=== PATIENT | male | born 1980 | race Caucasian/White ===

== ENCOUNTER → 2018-11-02 08:42 | Outpatient (CLI) | payer OTHER, SELFPAY ==
[2018-11-02 10:16] LABS: AST(SGOT) 21 U/L (15-37); Alanine Aminotransfer ALT/SGPT 34 U/L (16-61); Albumin, Serum 4.1 g/dL (3.2-5.0); Alkaline Phosphatase 59 U/L (45-117); Cholesterol 194 mg/dL (200); Globulin 3.2 g/dL (2.2-4.2); High Density Lipoprotein 50 mg/dL; Protein, Total 7.3 g/dL (6.4-8.2); Triglycerides 152 mg/dL; Very Low Density Lipoprotein 30 mg/dL (5-40)
== END ==
DX: E78.5 Hyperlipidemia, unspecified (principal)
CPT/HCPCS: 36415; 80061; 80076

== ENCOUNTER 2018-11-22 15:24 | Emergency (ER) | payer OTHER, SELFPAY ==
[2018-11-22 15:29] VITALS: BP 133/74; PULSE 74; RESP 18; TEMP 36.1; O2SAT 96; BMI 27.3
[2018-11-22 15:46] VITALS: BP 145/81; PULSE 72; RESP 18; O2SAT 96
--- NOTE | 2018-11-22 15:46 | ED.DCSUM_ITS ---
History of Present Illness Chief Complaint: Allergic Reaction Informant: Patient, Family Onset: Yesterday Context: Sudden Onset Timing: Continuous Quality: Generalized hives Location: Generalized Current Severity: Moderate Maximum Severity: Moderate Worsened by: Unknown Relieved by: Nothing Associated Symptoms: Nothing Narrative: Patient is a 37-year-old gentleman who has history of hypercholesterolemia presents with urticaria. Patient states he noted 1 erythematous lesion medial left arm yesterday. Upon awakening from nap this afternoon he noted rash on his neck, torso and extremities. He denies orthostatic symptoms. He denies visual, ocular auditory symptoms. He denies swelling of his lips, tongue or throat. Denies change in voice. Eyes difficult to breathing or swallowing. He denies wheezing. He denies palpitations. He does report vasovagal near syncopal episode Friday while urinating. He denies nausea, vomiting or diarrhea. He denies abdominal pain. Prior similar symptoms: No Recent Illness/Hospitalization: No - Past Medical History (1) History of hypercholesterolemia Status: Acute Past Medical History - Allergies and Home Meds Allergies/Adverse Reactions: Allergies [id number]-[id number]-Ujj Reductase Inhibitor Allergy (Verified 11/22/18 15:28) Other PT STATES HE GETS MUSCLE WEAKNESS. Primary Care Physician: Care Physician,No Primary [Primary Care Provider] - Doctors: Has not found a new doctor since moving from [place] with his and child Prior records reviewed: No Past Medical History: None Surgical History: no surgical history Lives: Spouse/ Significant Other, With Family Smoking Status: Never smoker Alcohol: Rare Drugs: None Review of Systems General: Denies: Chills, Fever, Sweats Eyes: Denies: Visual changes - bilaterally, Blurred Vision - bilaterally, Diplopia ENT: Denies: Bilateral ear pain, Rhinorrhea, Sore throat Cardiovascular: Denies: Chest pain, Palpitations Respiratory: Denies: Dyspnea, Cough, Dyspnea on exertion, Orthopnea, Paroxysmal nocturnal dyspnea Gastrointestinal: Denies: Abdominal pain, Nausea, Vomiting, Diarrhea, Melena, Hematochezia Genitourinary: Denies: Dysuria, Hematuria, Frequency Musculoskeletal: Denies: Back pain, Extremity Pain Skin: Denies: Rash, Wounds Neurological: Denies: Headache, Weakness, Parasthesia, Numbness Hematologic: Denies: Easy bruising, Easy bleeding Allergy: Reports: Uticaria Physical Exam Vital Signs/Narrative: Vital Signs Temp Pulse Resp BP Pulse Ox 11/22/18 15:29 96.9 F L 74 18 133/74 H 96 Inital Vital Signs reviewed: Yes General: Well nourished, Well developed, No Acute Distress Head: Normocephalic, Atraumatic Eyes: Perrl, EOMI, -. Negative for: Pale conjunctiva, Scleral icterus ENT: Moist mucous membranes, No rhinorrhea, TM's clear, - - Uvula is midline. There is no evidence of angioedema.. Negative for: Nasal congestion Neck: Supple, Nontender, No lymphadenopathy, No JVD, - - Trachea is midline. There is no stridor. Cardiovascular: Regular rate, Regular rhythm, No murmurs, Normal S1, Normal S2 Respiratory: No distress, CTA bilaterally, Chest nontender Abdomen: Soft, Nontender, Nondistended, Normal bowel sounds, No masses Back: Nontender, Normal Inspection. Negative for: CVA tenderness Extremities: Nontender, No edema Skin: Normal color, Rash - Urticaria. Negative for: Cyanosis, Jaundice Neurological: Alert, Oriented x3, Cranial nerves II-XII grossly intact, Normal Strength, Normal Sensation, Normal Gait Psychological: Normal affect, Normal Mood Diagnostic/Tx/Re-eval - Rhythm Strip Rhythm Strip: Sinus Rhythm Rate: 72 Ectopy: None - Medical Decision Making Patient has urticaria. There is no evidence of systemic findings. Since he took Benadryl at home he was treated with IV Pepcid and 60 mg of prednisone. Patient was asked specifically if he eaten any varies, shellfish or nuts in the past 1-2 hours or 24 hours. He replied no. Patient was informed he will need allergy testing. He will referred to a physician since she does not have a local physician since relocating from [facility] Patient was reassessed at 1700. His urticaria has resolved. He was referred to Dr. Flo Horn. states they are dentist referral recommended Dr. Flo Horn. Patient was informed he will need allergy testing. He was discharged with prescription for prednisone burst and Pepcid. ED Disposition - Plan for ED Patient: Disposition: Home or Assisted Living Diagnosis: Urticaria Prescriptions: Prednisone [Deltasone] 40 mg PO DAILY #10 tab Famotidine [Pepcid] 20 mg PO BID #10 tab Referrals: Care Physician,No Primary [Primary Care Provider] - Flo Horn MD [STAFF PHYSICIAN] - 3-5 Days
[2018-11-22] MEDS: predniSONE 20 MG Tablet 60 MG PO (15:51)
[2018-11-22 17:37] VITALS: BP 134/83; PULSE 55; RESP 20; O2SAT 96
== END 2018-11-22 17:38 | disposition home or self-care (01) ==
PROVIDERS: Emergency Provider Emergency Medicine
DX: L50.0 Allergic urticaria (principal); E78.00 Pure hypercholesterolemia, unspecified; Z79.899 Other long term (current) drug therapy
CPT/HCPCS: 96374; 99285; A4216; J3490

== ENCOUNTER → 2018-12-23 | Outpatient (CLI) | payer OTHER, SELFPAY ==
[2018-12-23 14:55] VITALS: BMI 27.3
--- NOTE | 2018-12-23 15:00 | MASS_PTH ---
PATIENT: TOD SERRATO LOC: [facility] U#:[id number] AGE/SX: 38/M ROOM: RE12/23/[address]: Dr. Wagner Srinivasan MD : [id number] BED: DIS: 12/23/2018 SPEC #: [id number] RECD: 12/24/18 07:13 STATUS: COLBY ABBY #: [id number] SACHIN: 12/23/18 15:[address]: Wagner Srinivasan DEPT: SURGICAL PATHOLOGY RECD BY: Jakob Cardozo ENTERED: 12/24/18 12:26 SP TYPE: Mass OTHR DR: Dr. Flo Horn MD Tissues: Left arm Procedures: Surgery Specimen Level IV HEADER OPERATION: Excision left arm mass PRE-OP DIAGNOSIS: Left arm mass TISSUE SUBMITTED: Left arm tissue MICROSCOPIC DIAGNOSIS Left arm mass, excision: Benign vascular proliferation, most consistent with arteriovenous malformation, with organizing thrombus formation. SJ:willow 12/25/18 COMMENT Case has been reviewed in consultation with Dr. Carrion who concurs with the above diagnosis. IDC:AM MICROSCOPIC DESCRIPTION Slides are reviewed. GROSS DESCRIPTION Received in fixative is one container labeled with the patient's name and designated left arm. The specimen consists of round piece of hemorrhagic nodule measuring 1.5 x 1.3 x 0.6 cm. The specimen is inked, serially sectioned and submitted entirely in one cassette. / SJ:rg 12/24/18 TC:5 CPT: 36776
== END | disposition home or self-care (01) ==
LOC: LABSPEC 12-24 08:15
PROVIDERS: Family Provider Family Medicine; PCP Family Medicine; Referring Provider Surgery; Visit Provider Surgery
DX: R22.32 Localized swelling, mass and lump, left upper limb (principal)
CPT/HCPCS: 88305

== ENCOUNTER → 2019-09-13 09:46 | Outpatient (CLI) | payer OTHER, SELFPAY ==
[2018-12-23 14:55] VITALS: BMI 27.3
[2019-09-13 12:32] LABS: Thyroid Stim Hormone (TSH) 1.91 uIU/mL (0.358-3.74)
== END ==
PROVIDERS: PCP Family Medicine; Visit Provider Nurse Practitioner Family
DX: R22.0 Localized swelling, mass and lump, head (principal)
CPT/HCPCS: 36415; 84443

== ENCOUNTER → 2019-11-01 09:17 | Outpatient (CLI) | payer OTHER, SELFPAY ==
[2018-12-23 14:55] VITALS: BMI 27.3
[2019-11-01 10:51] LABS: ALB/GLOB Ratio 1.2 RATIO (0.9-2.4); AST(SGOT) 18 U/L (15-37); Alanine Aminotransfer ALT/SGPT 30 U/L (16-61); Albumin, Serum 4.3 g/dL (3.2-5.0); Alkaline Phosphatase 62 U/L (45-117); Anion Gap 6 (5-15); BUN 14 mg/dL (7-18); BUN/Creat Ratio 12.8 RATIO (10-20); Calcium,Total 9.3 mg/dL (8.5-10.1); Chloride 106 mmol/L (98-107); Cholesterol 127 mg/dL (200); Creatinine, Serum 1.09 mg/dL (0.70-1.30); EST Glomerular Filtration Rate 80 mL/min (>60); Est Glom Filt Rate - Afr Amer 97 mL/min (>60); Globulin 3.6 g/dL (2.2-4.2); Glucose 96 mg/dL (74-106); High Density Lipoprotein 60 mg/dL; Potassium 3.8 mmol/L (3.5-5.1); Protein, Total 7.9 g/dL (6.4-8.2); Sodium Level 139 mmol/L (136-145); Triglycerides 161 mg/dL; Very Low Density Lipoprotein 32 mg/dL (5-40)
== END ==
PROVIDERS: PCP Family Medicine
DX: E78.49 Other hyperlipidemia (principal)
CPT/HCPCS: 36415; 80053; 80061

== ENCOUNTER → 2020-01-19 12:31 | Outpatient (CLI) | payer OTHER, SELFPAY ==
[2019-12-01 15:50] VITALS: BMI 26.5
--- NOTE | 2020-01-19 12:33 | ECHOD_ITS ---
Reason For Study: MURMUR Procedure This was a 2D Doppler, Color Flow transthoracic echocardiogram. Exam performed in department. Left Ventricle Normal LV size. Left ventricular systolic function is normal. The estimated ejection fraction is 55 %. No regional wall motion abnormalities noted. Right Ventricle Normal RV size. Normal systolic function. Atria Normal left atrium. Normal right atrium. Mitral Valve Normal mitral valve. Tricuspid Valve Normal tricuspid valve. Aortic Valve Bicuspid aortic valve. Peak aortic valve gradient 9 mmHg. Mean aortic valve gradient 5 mmHg. Mild aortic stenosis. Pulmonic Valve Normal pulmonic valve. Great Vessels Normal aortic root. The pulmonary artery is normal size. Normal inferior vena cava. Pericardium/Pleural No pericardial effusion. MMode/2D Measurements & Calculations LVIDd: 5.1 cm IVSd: 0.91 cm LVOT diam: 2.4 cm LVIDs: 3.7 cm LVPWd: 0.97 cm LVOT area: 4.5 cm2 RVDd: 3.3 cm FS: 26.6 % Ao root diam: 3.3 cm LAV(MOD-bp): 31.6 ml LA A4 area: 12.7 cm2 LAV(MOD-bp) Indexed: 14.7 ml/m2 LAV(MOD-sp2): 30.1 ml LAV(MOD-sp4): 29.6 ml LA dimension(2D): 2.8 cm RA A4 area: 10.9 cm2 Time Measurements MV dec time: 0.12 sec Doppler Measurements & Calculations MV E max napoleon: 67.7 cm/sec Lat Peak E' Napoleon: 11.8 cm/sec Med Peak E' Napoleon: 10.2 cm/sec MV A max napoleon: 47.5 cm/sec E/E' lat: 5.7 E/E' med: 6.6 MV E/A: 1.4 Ao V2 max: 151.3 cm/sec LV V1 max: 60.1 cm/sec SV(LVOT): 46.1 ml Ao max P.3 mmHg LV V1 max P.4 mmHg Ao V2 mean: 99.2 cm/sec LV V1 mean P.74 mmHg Ao mean P.6 mmHg LV V1 mean: 41.4 cm/sec Ao V2 VTI: 25.8 cm LV V1 VTI: 10.3 cm LIYAH(I,D): 1.8 cm2 LIYAH(V,D): 1.8 cm2 PA V2 max: 93.2 cm/sec TR max napoleon: 199.3 cm/sec TR max P.9 mmHg Interpretation Summary Normal LV size. Left ventricular systolic function is normal. The estimated ejection fraction is 55 %. Mild aortic stenosis. Mean aortic valve gradient 5 mmHg. Bicuspid aortic valve. Ordering Physician: Rory Harvey Referring Physician: Flo Horn Performed By: Ida Ulrich RDCS, RVT
--- NOTE | 2020-01-19 12:38 | CT_ITS ---
STUDY: CT CHEST WITHOUT CONTRAST REASON FOR EXAM: Male, 39 years old. CAD, aortic insufficiency, hyperlipidemia. Limited CT Chest over-read only. RADIATION DOSAGE (If Supplied By Facility): CTDIvol = ( 12.19 ) mGy, DLP = ( 243.79 ) mGycm TECHNIQUE: Transaxial imaging was performed without the administration of intravenous contrast material. Cardiac over read examination. Individualized dose optimization techniques were used for this CT. COMPARISON: None. FINDINGS: The lungs are normal. There is no demonstrated pleural abnormality. There are minimal calcifications of the coronary arteries. There are multiple small lymph nodes within the mediastinum, which are normal in size and morphology most compatible with reactive lymph hyperplasia. Normal hilar regions. Normal unenhanced pulmonary arteries. Normal aorta arch and descending thoracic aorta. Normal osseous structures. Small hiatal hernia. CT/Limited Chest CT w/CCTA IMPRESSION: Minimal coronary artery calcifications. Electronically Signed: Jeb Posey, at 15:03 EDT , Service support ,
[2020-01-19 13:40] VITALS: BP 129/84; PULSE 69; RESP 16; O2SAT 99; BMI 26.4
--- NOTE | 2020-01-19 18:05 | CA.SCORE ---
Calcium Scoring Date of Study:: 01/19/20 Coronary Calcium Scoring: High-resolution Computed Tomographic imaging of the chest was performed on [01/19/2020], with particular attention paid to the coronary arteries. Images from the examination were analyzed for the presence and extent of coronary artery calcification , using coronary calcium quantification software. The patient tolerated the procedure well and there were no complications. The results of the coronary calcification analysis are provided below. - Findings Left Main (LM): 0 Left Anterior Descending (LAD): 0 Left Circumflex (LCX): 0 Right Coronary Artery (RCA): 0 Total Agatston Score: 0 Percentile Rankinth percentile Calcium Scoring Interpretation: 0 No identifiable atherosclerotic plaque. Very low cardiovascular disease risk. <5% chance of presence coronary artery disease A Negative Examination 1-10 Minimal Plaque burden. Significant coronary artery disease very unlikely. 11-100 Mild plaque burden. Likely mild or minimal coronary atherosclerosis. 101-400 Moderate plaque burden Moderate non-obstructive coronary artery disease highly likely. Over 400 Extensive plaque burden. High likelihood of at least one significant coronary stenosis (>50% diameter) Calcium Score: 0 Negative Examination - Determination of cardiac risk should include an assessment of all conventional risk factors and the scores and percentile rankings reported herein should be evaluated in this context.
== END ==
PROVIDERS: PCP Family Medicine; Referring Provider Internal Medicine Cardiovascular Disease; Visit Provider Internal Medicine Cardiovascular Disease
DX: R01.1 Cardiac murmur, unspecified (principal); I25.10 Atherosclerotic heart disease of native coronary artery without angina pectoris; Q23.1 Congenital insufficiency of aortic valve; E78.5 Hyperlipidemia, unspecified
CPT/HCPCS: 75571; 76380; 93306

== ENCOUNTER → 2020-12-05 10:41 | Outpatient (CLI) | payer OTHER, SELFPAY ==
[2020-12-05 08:01] VITALS: BMI 27.1
[2020-12-05 12:15] LABS: AST(SGOT) 27 U/L (15-37); Alanine Aminotransfer ALT/SGPT 45 U/L (16-61); Albumin, Serum 4.5 g/dL (3.2-5.0); Alkaline Phosphatase 64 U/L (45-117); Bilirubin, Direct 0.21 mg/dL (0.00-0.30); Cholesterol 154 mg/dL (200); Globulin 3.9 g/dL (2.2-4.2); High Density Lipoprotein 69 mg/dL; Protein, Total 8.4 g/dL (6.4-8.2); Triglycerides 74 mg/dL; Very Low Density Lipoprotein 15 mg/dL (5-40)
== END ==
PROVIDERS: PCP Family Medicine; Referring Provider Internal Medicine Cardiovascular Disease; Visit Provider Internal Medicine Cardiovascular Disease
DX: E78.00 Pure hypercholesterolemia, unspecified (principal)
CPT/HCPCS: 36415; 80061; 80076

== ENCOUNTER → 2021-05-08 | Outpatient (CLI) | payer OTHER, SELFPAY | END | disposition home or self-care (01) | LOC: LAB 18:21 → LABSPEC 20:17 | PROVIDERS: PCP Family Medicine; Referring Provider Family Medicine; Visit Provider Family Medicine | DX: U07.1 COVID-19 (principal) | CPT/HCPCS: 87635; U0005; U0003 ==

== ENCOUNTER 2021-11-30 07:15 | Outpatient (CLI) | payer OTHER, SELFPAY ==
[2021-11-30 07:50] LABS: Absolute Lymphocyte Count 1.61 X10^3/uL (0.83-4.51); Absolute Neutrophil Count 2.6 X10^3/uL (2.0-7.7); Basophil# 0.02 X10^3/uL; Basophil% 0.4 % (0-1); Eosinophil# 0.08 X10^3/uL; Eosinophils% 1.6 % (0-5); Hematocrit 49.1 % (40-54); Hemoglobin 16.8 g/dL (13.0-16.5); Lymphocyte # 1.61 X10^3/ul (0.83-4.51); Lymphocyte % 33.2 % (19-41); Mean Corp Hgb Conc 34.2 g/dL (32-36); Mean Corpuscular Hgb 31.4 pg (27.0-32.0); Mean Corpuscular Volume 91.8 fL (80-94); Mean Platelet Vol. 10.4 fl (6.2-12.0); Monocyte# 0.55 X10^3/uL; Monocyte% 11.3 % (0-10); NRBC Flagged by Analyzer 0 % (0-5); Neutrophil # 2.58 X10^3/uL (2.7-7.7); Neutrophil % 53.3 % (47-70); Platelet Count 211 K/mm3 (150-450); RBC Distribution Width CV 12.3 % (11.6-14.6); RBC Distribution Width SD 41.5 fl (35.1-43.9); Red Blood Count 5.35 M/mm3 (4.6-6.2); White Blood Count 4.9 K/mm3 (4.4-11.0)
[2021-11-30 08:16] LABS: ALB/GLOB Ratio 1.2 RATIO (0.9-2.4); AST(SGOT) 19 U/L (15-37); Alanine Aminotransfer ALT/SGPT 38 U/L (16-61); Albumin, Serum 4.2 g/dL (3.2-5.0); Alkaline Phosphatase 55 U/L (45-117); Anion Gap 3 (5-15); BUN 18 mg/dL (7-18); BUN/Creat Ratio 16.8 RATIO (10-20); Bilirubin, Direct 0.15 mg/dL (0.00-0.30); Calcium,Total 8.8 mg/dL (8.5-10.1); Chloride 106 mmol/L (98-107); Cholesterol 145 mg/dL (200); Creatinine, Serum 1.07 mg/dL (0.70-1.30); EST Glomerular Filtration Rate 81 mL/min (>60); Est Glom Filt Rate - Afr Amer 98 mL/min (>60); Globulin 3.6 g/dL (2.2-4.2); Glucose 104 mg/dL (74-106); High Density Lipoprotein 70 mg/dL; Protein, Total 7.8 g/dL (6.4-8.2); Sodium Level 140 mmol/L (136-145); Triglycerides 74 mg/dL; Very Low Density Lipoprotein 15 mg/dL (5-40)
== END 2021-11-30 23:59 | disposition home or self-care (01) ==
LOC: LAB 07:17
PROVIDERS: PCP Family Medicine; Visit Provider Family Medicine
DX: Z00.00 Encounter for general adult medical examination without abnormal findings (principal); F33.8 Other recurrent depressive disorders; I70.0 Atherosclerosis of aorta
CPT/HCPCS: 36415; 80053; 80061; 82248; 85025

== ENCOUNTER 2021-12-27 12:52 | Outpatient (CLI) | payer OTHER, SELFPAY ==
--- NOTE | 2021-12-27 13:05 | ECHOD_ITS ---
Reason For Study: bicuspid aortic valve Procedure This was a 2D Doppler, Color Flow transthoracic echocardiogram. Exam performed in department. Left Ventricle Normal LV size. Left ventricular systolic function is normal. The estimated ejection fraction is 55 %. No regional wall motion abnormalities noted. Right Ventricle Normal right ventricle. Normal systolic function. Atria Normal left atrium. Normal right atrium. Mitral Valve Normal mitral valve. Tricuspid Valve Normal tricuspid valve. Mild tricuspid valve insufficiency. Aortic Valve Bicuspid aortic valve. Peak aortic valve gradient 17 mmHg. Mean aortic valve gradient 10 mmHg. Pulmonic Valve Normal pulmonic valve. Great Vessels Normal aortic root. The pulmonary artery is normal size. Normal inferior vena cava. Pericardium/Pleural No pericardial effusion. MMode/2D Measurements & Calculations LVIDd: 4.8 cm IVSd: 0.96 cm LVOT diam: 2.4 cm LVIDs: 3.1 cm LVPWd: 0.97 cm LVOT area: 4.5 cm2 RVDd: 3.1 cm FS: 35.3 % Ao root diam: 3.7 cm LAV(MOD-bp): 42.4 ml LA A4 area: 15.2 cm2 LAV(MOD-bp) Indexed: 19.7 ml/m2 LAV(MOD-sp2): 40.1 ml LAV(MOD-sp4): 41.7 ml LA dimension(2D): 3.4 cm RA A4 area: 14.4 cm2 Doppler Measurements & Calculations MV E max napoleon: 61.1 cm/sec Lat Peak E' Napoleon: 14.6 cm/sec Med Peak E' Napoleon: 10.4 cm/sec MV A max napoleon: 42.6 cm/sec E/E' lat: 4.2 E/E' med: 5.9 MV E/A: 1.4 Ao V2 max: 210.2 cm/sec LV V1 max: 91.4 cm/sec SV(LVOT): 79.7 ml Ao max P.7 mmHg LV V1 max P.3 mmHg Ao V2 mean: 155.3 cm/sec LV V1 mean P.9 mmHg Ao mean P.4 mmHg LV V1 mean: 66.1 cm/sec Ao V2 VTI: 36.1 cm LV V1 VTI: 17.7 cm LIYAH(I,D): 2.2 cm2 LIYAH(V,D): 2.0 cm2 PA V2 max: 112.9 cm/sec TR max napoleon: 222.2 cm/sec TR max P.7 mmHg ECHO/Echo Complete Interpretation Summary Normal LV size. Left ventricular systolic function is normal. The estimated ejection fraction is 55 %. Bicuspid aortic valve. Mild tricuspid valve insufficiency. Mean aortic valve gradient 10 mmHg. Ordering Physician: Rory Harvey Referring Physician: Flo Horn Performed By: Ida Ulrich, SCOOTER, RVT
== END 2021-12-27 23:59 | disposition home or self-care (01) ==
PROVIDERS: PCP Family Medicine; Referring Provider Internal Medicine Cardiovascular Disease; Visit Provider Internal Medicine Cardiovascular Disease
DX: Q23.0 Congenital stenosis of aortic valve (principal); Q23.1 Congenital insufficiency of aortic valve
CPT/HCPCS: 93306

== ENCOUNTER → 2022-06-17 | Outpatient (CLI) | payer OTHER, SELFPAY ==
--- NOTE | 2022-06-17 07:48 | CDU_ITS ---
Reason For Study: DIZZINESS Rt. Velocities/BP Lt. Velocities/BP Prox CCA 114.9/9.3 cm/sec. Prox CCA 114.3/19.4 cm/sec. Mid CCA 112.5/21.6 cm/sec. Mid CCA 116.2/28.5 cm/sec. Dist CCA 101.4/17.9 cm/sec. Dist CCA 114.3/26.7 cm/sec. Prox ICA 107.0/13.9 cm/sec. Prox ICA 114.3/19.4 cm/sec. Mid ICA 58.5/19.7 cm/sec. Mid ICA 61.1/21.5 cm/sec. Dist ICA 66.0/28.2 cm/sec. Dist ICA 68.8/21.5 cm/sec. Rt. ICA/CCA = 107.0/112.5=0.95. Lt. ICA/CCA = 114.3/116.2=0.98. Prox ECA 81.8/13.0 cm/sec. Prox ECA 123.5/17.5 cm/sec. Rt. Vert. 50.9/11.2 cm/sec. Lt. Vert. 47.6/8.4 cm/sec. Right Extracranial There is intimal thickening but no significant atherosclerotic plaque noted in the right common carotid artery. There is no significant atherosclerotic plaque noted in the right internal carotid artery. There is no significant atherosclerotic plaque noted in the right external carotid artery. Antegrade flow is noted in the right vertebral artery. Left Extracranial There is intimal thickening but no significant atherosclerotic plaque noted in the left common carotid artery. There is intimal thickening but no significant atherosclerotic plaque noted in the left internal carotid artery. There is no significant atherosclerotic plaque noted in the left external carotid artery. Antegrade flow is noted in the left vertebral artery. Procedure Carotid Duplex 18510. This is a Carotid Duplex examination using B-mode, color flow and specral Doppler. Exam performed in department. VL/Carotid Duplex Ultrasound Interpretation Summary Normal right extracranial internal carotid. Normal left extracranial internal carotid. Patent and antegrade vertebrals bilaterally. Ordering Physician: Roger Lowe Referring Physician: Flo Horn Performed By: Ida Ulrich RDCS, RVT
== END | disposition home or self-care (01) ==
LOC: CVS 07:44
PROVIDERS: PCP Family Medicine; Referring Provider Nurse Practitioner Family; Visit Provider Nurse Practitioner Family
DX: I65.22 Occlusion and stenosis of left carotid artery (principal); R42 Dizziness and giddiness
CPT/HCPCS: 93880

== ENCOUNTER → 2023-01-23 | Outpatient (CLI) | payer OTHER, SELFPAY ==
[2023-01-23 10:39] LABS: AST(SGOT) 21 U/L (15-37); Alanine Aminotransfer ALT/SGPT 42 U/L (16-61); Albumin, Serum 4.3 g/dL (3.2-5.0); Alkaline Phosphatase 48 U/L (45-117); Bilirubin, Direct 0.19 mg/dL (0.00-0.30); Cholesterol 153 mg/dL (200); Globulin 3.6 g/dL (2.2-4.2); High Density Lipoprotein 66 mg/dL; Protein, Total 7.9 g/dL (6.4-8.2); Triglycerides 73 mg/dL; Very Low Density Lipoprotein 15 mg/dL (5-40)
== END | disposition home or self-care (01) ==
LOC: LAB 09:04
PROVIDERS: PCP Family Medicine; Visit Provider Nurse Practitioner Gerontology
DX: E78.5 Hyperlipidemia, unspecified (principal)
CPT/HCPCS: 36415; 80061; 80076

== ENCOUNTER 2023-06-19 08:00 | Outpatient (RCR) | payer OTHER, SELFPAY ==
--- NOTE | 2023-05-15 10:40 | HP.PTEVAL_ITS ---
Patient's Visit Information Visit Information Visit Information: TOD SERRATO is a 42 year old M referred to Physical Therapy by BABITA Garvey with a diagnosis of CERVICAL DDD, RADICULITIS, STENOSIS, SPONDYLOSIS, AND FACET ARTHROPATHY. Date of Evaluation: 05/15/23 Physical Therapist: Joanna Sweet PT, Cert MDT Visit Plan Frequency: 2-3x /Week Duration: 4-6 Weeks Plan: FOCUS ON CERVICAL AND REGINA SHLD STRENGTH AND STABILIZATION TO TRY TO DECREASE PAIN. AVOID PERIPHERALIZATION OF SX'S. START WITH CERVICAL ISOMETRICS AND SCAPULAR STRENGTHENING. POSTURE CORRECTION/STRENGTHENING, INSTRUCTION IN APPROPRIATE BODY MECHANICS AND ACTIVITY MODIFICATIONS. REGINA UE ROM, STRETCHING AND STRENGTHENING. HEP INSTRUCTION. 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 SOME PHYSICAL WORK. Disability: NO Present symptoms: R NECK PAIN. NUMBNESS AND TINGLING R DIGITS 4 AND 5. INTERMITTENT HEADACHES - APPROX 4 DAYS A WK. DIZZINESS (FOR AT LEAST A YEAR). R SHLD AND ARMPIT AREA PAIN. R FOREARM PAIN. Present since: A YEAR OR TWO AGO Pain Scale: Worst - 6/10 Least - 2/10 Currently: 3/10 Commenced as a result of: FELL DOWN STEPS Symptoms at onset: NECK PAIN Worse: (>25LBS) - PUSHING, PULLING, LIFTING, HAVING INTERCOURSE Better: ICE, ALEVE, PREDNISONE (JUST STARTED THIS MORNING). Disturbed sleep: NO Previous history/Previous treatment: NO KNOWN PRIOR HISTORY This episode: 2 ROUNDS OF INJECTIONS, A NERVE BLOCK AND AN ABLASION. OCCASSIONAL ROUNDS OF STEROIDS. THEY HAVE ALL GIVEN TEMPORARY RELIEF. CONSULT WITH NECK SURGEON - PATIENT REPORTS HE SAID FUSION WOULD BE NEEDED AT SOME POINT BUT RECOMMENDED INJECTIONS FIRST AND REFERRED HIM TO PAIN MGMT FIRST. Dizziness: YES Tinnitis: OCCASSIONALLY Nausea: NO Shortness of Breath: NO Difficulty Swollowing: NO Gait: NO Accidents: NO Unexplained weight loss: NO Imaging: HAS HAD NECK X-RAYS AND MRI. PATIENT REPORTS HE HAS 3 BULGING DISCS BETWEEN C3 AND C7. PMH/Recent major surgery: Objective Objective: Sitting Posture/Standing Posture: PATIENT SITS AND STANDS WITH RIGID ERECT POSTURE AND WHEN ASKED TO SLOUCHED REPORTS IT IS VERY UNCOMFORTABLE AND QUICKLY BECOMES PAINFUL IN UPPER BACK. Active Correction of posture: BETTER. Other Observations: INDEP GAIT AND TRANSFERS Sensory deficit: DECREASED LIGHT TOUCH SENSATION R ULNAR BORDER OF FORARM, AND DIGITS 1 (THUMB), 4 AND 5. ROM deficit: REGINA UE ROM WFL BUT PATIENT C/O R SHLD, UPPER BACK AND NECK PAIN WITH REGINA SHLD ROM TESTING ALL PLANES ESPECIALLY OVER HEAD. Motor deficit: R HAND DOMINANT WITH A R BILINGUAL HR GENERALIST STRENGTH OF 110 LBS AND LEFT 98 LBS. REGINA SCAPULAR WEAKNESS AND WINGING. R SHLD 4-/5, ELBOW 5/5. L SHLD 4/5, ELBOW 5/5. Reflexes: RIGHT BICEP 1/2, FOREARM ABSENT. L BICEP AND FOREARM 2/3. Dural Signs: POSITIVE R UE. Cervical Mvmt Loss: Flex: NIL Pro: NIL Ext: MIN Ret: MIN TO MOD - PERIPHERIZES SX'S. RSB: MIN LSB: MIN R Rot: NIL L Rot: NIL PATIENT C/O NECK DISCOMFORT WITH CERVICAL ROM TESTING ALL PLANES. Postural strength: FAIR Palpation: PATIENT REPORTS DISCOMFORT WITH PALPATION THROUGHOUT THE THORACIC SPINE ESPECIALLY THE UPPER THORACIC SPINE. HE IS ALSO TENDER WITH LIGHT PALPATION IN THE CERVICAL SPINE AND OCCIPUT REGION. HE IS UNSURE IF HE HAS HAD THORACIC IMAGING AND IS GOING TO CHECK WITH HIS DOCTOR. WITH LIGHT PALPATION OF UPPER CERVICAL SPINE PATIENT REPORTS HE CAN FEEL IT IN HIS FEET. Balance/Special Test Scores Oswestry Neck Score: 17 Goals Goal 1:: DECREASE C/O RIGHT NECK, UPPER BACK AND R UE SX'S. Goal Time Frame: 4-6 Weeks Goal 2:: IMPROVE PERSONAL CARE, LIFTING, READING, SLEEP, WORK, DRIVING AND RECREATIONAL FUNCTION. Goal Time Frame: 4-6 Weeks Goal 3:: INSTRUCT IN PROPHYLAXIS Goal Time Frame: 4-6 Weeks Anticipated Interventions Patient/Client Instruction: Educate patient on: Condition, Plan of Care and Risk Factors For the Purpose of:: To improve self management Therapeutic Exercise to Include: Strength training, Body mechanics, Postural training, Flexibilty training, Neuromotor development and Scapular Strength/Stabilization For the Purpose of:: To decrease pain, To increase ROM, To improve muscle performance and motor function, To increase tolerance to activity/condition/position and To improve ability of physical actions for home/community/work/leisure Cryotherapy (ice pack, ice massage): Yes Thermo therapy (hot pack): Yes For the Purpose of:: To decrease pain and To decrease swelling/inflammation Text: Thank you for the opportunity to evaluate your patient. For Medicare and Medicare HMO plans, please review the plan of care and approve it. It will need to be FAXED BACK to us at [phone] for Medicare purposes. For Medicare only, by signing this I certify the plan of care. Please let me know if there are questions or concerns regarding this plan of care. Physician Signature: Date:
--- NOTE | 2023-06-19 08:38 | HP.PTDCSUM ---
Discharge Summary D/C summary: It has been my pleasure to treat TOD SERRATO referred by Liz Padron NP-C, with the diagnosis of CERVICAL DDD, RADICULITIS, STENOSIS, SPONDYLOSIS, AND FACET ARTHROPATHY for a total of 10 visit(s). Discharge Date: 06/19/23 Please see the following information for a summary of their discharge status. Subjective Subjective: I'M MUCH BETTER THAN I THOUGH I WOULD FEEL. PATIENT REPORTS HE CAN RELAX HIS NECK NOW. HE STATES THE MUSCLES THAT GO DOWN THE THORACIC REGION FEEL STABLE AND HIS NECK FEELS STABLE. I DON'T GET NEAR THE AMOUNT OF CRACKING AND POPPING IN MY NECK. OVER ALL THE PAIN IS A LOT MORE TOLERABLE AND MY SHLD'S ARE MORE STABLE. I DON'T HAVE THE GOMES'S OFTEN OR INTENSE. PATIENT REPORTS COMPLIANCE WITH HEP AND FEELS HE CAN CONTINUE ON HIS OWN NOW. PATIENT REPORTS HIS NECK PAIN IS INTERMITTENT NOW RANGING 0-3/10. Pain R UT: Pain Intensity (Out of 10): 1 Overall Improvement % Improvement: 100 Objective Objective/Function: PATIENT WAS SEEN TODAY FOR RE-ASSESSMENT OF PROGRESS TOWARD THE SET PT GOALS AND THE NEED FOR FURTHER PHYSICAL THERAPY VS READINESS FOR DISCHARGE. ALL GOALS HAVE BEEN MET AND PATIENT IS APPROPRIATE FOR AND AGREEABLE TO DISCHARGE. UPON EXAM TODAY: Cervical Mvmt Loss: Flex: NIL Pro: NIL Ext: MIN Ret: MIN RSB: MIN LSB: MIN R Rot: NIL L Rot: NIL PATIENT C/O NECK DISCOMFORT WITH CERVICAL ROM INTO RETRACTION, EXTENSION AND L ROTATION BUT DOES NOT REMAIN WORSE A RESULT. PATIENT IS INDEP WITH HEP. Goals Goal 1:: DECREASE C/O RIGHT NECK, UPPER BACK AND R UE SX'S. Goal Progress: Goal Met Goal 2:: IMPROVE PERSONAL CARE, LIFTING, READING, SLEEP, WORK, DRIVING AND RECREATIONAL FUNCTION. Goal Progress: Goal Met Goal 3:: INSTRUCT IN PROPHYLAXIS Goal Progress: Goal Met Plan Plan: FOCUS ON CERVICAL AND REGINA SHLD STRENGTH AND STABILIZATION TO TRY TO DECREASE PAIN. AVOID PERIPHERALIZATION OF SX'S. START WITH CERVICAL ISOMETRICS AND SCAPULAR STRENGTHENING. POSTURE CORRECTION/STRENGTHENING, INSTRUCTION IN APPROPRIATE BODY MECHANICS AND ACTIVITY MODIFICATIONS. REGINA UE ROM, STRETCHING AND STRENGTHENING. HEP INSTRUCTION. D/C Information d/c sentence: If there are questions or concerns regarding this patient's physical therapy, please feel free to call me at [phone]. Thank you for the referral of this patient. Sincerely, Joanna Sweet, PT, Cert MDT Balance/Gait/Functional tests Balance/Special Test Scores Oswestry Neck Score: 10 Improvement % Improvement: 100
== END 2023-06-19 12:24 | disposition home or self-care (01) ==
LOC: PT 08:00
PROVIDERS: PCP Family Medicine; Referring Provider Nurse Practitioner Acute Care; Visit Provider Nurse Practitioner Acute Care
DX: M50.30 Other cervical disc degeneration, unspecified cervical region (principal); M54.12 Radiculopathy, cervical region; M50.20 Other cervical disc displacement, unspecified cervical region; M48.02 Spinal stenosis, cervical region; M47.812 Spondylosis without myelopathy or radiculopathy, cervical region; M48.9 Spondylopathy, unspecified
CPT/HCPCS: 97110; 97162; 97164

== ENCOUNTER → 2023-09-29 | Outpatient (CLI) | payer OTHER, SELFPAY ==
--- OUTSIDE RECORDS SUMMARY | 2023-09-29 15:01 | XMS RPT_ITS | CCD ---
Author Name Unknown Address [address] [place] [address] Organization [facility] Care Team Providers Care Account Director Name Role Phone Panchito Moses Unavailable Unavailable Jose G Velasquez Unavailable Unavailable Jose G Velasquez W Unavailable Unavailable EvaAndi nguyenm W Unavailable Unavailable Sanam Valenzuela Unavailable Unavailable Allergies Allergy Classification Reported Allergen(s) Allergy Type Date of Onset Reaction(s) Facility (1 source) Hmg-Coa Reductase Inhibitors (Statins); Translations: [Statins] Propensity to adverse reactions (disorder) 5 AOF [facility] Repository Problems Problem Classification Problem Date Documented Da te Episodic/Chronic Unclassified (1 source) Unknown / UNK(Unknown) Onset: 03-12-2018 Results Test Name Value Interpretation Reference Range Facil ity Encounters Encounter Date Encounter Type Care Provider Facility Start: 03-12-2018 End: 03-12-2018 Patient encounter Panfilodiego Daviskiel Facility:[facility] Start: 09-04-2017 End: 09-04-2017 Patient encounter Jose G Velasquez Facility:[facility] Payers Date Payer Category Payer Unknown [id number] Summary Purpose Family History No Family History Records Found Advance Directives No Advanced Directives Records Found Additional Source Comments (unrecognized sect ion and content) No Status Records Found INFORMATION SOURCE (unrecogn ized section and content) FOR RECORDS PERTAINING TO PATIENTS WHO ARE OR HAVE BEEN ENROLLED IN A CHEMICAL DEPENDENCY/SUBSTANCEABUSE PROGRAM, SOME INFORMATION MAY BE OMITTED. This clinical summary was aggregated from multiple sources. Caution should be exercised in using it in the provision of clinical care. This summary normalizes information from multiple sources, and as a consequence, information in this document may materially change the coding, format and clinical context of patient data. In addition, data may be omitted in some cases. CLINICAL DECISIONS SHOULD BE BASED ON THE PRIMARY CLINICAL RECORDS. [facility], [facility]. provides no warranty or guarantee of the accuracy or completeness of information in this document.
== END | disposition home or self-care (01) ==
PROVIDERS: PCP Family Medicine; Referring Provider Nurse Practitioner Family; Visit Provider Nurse Practitioner Family
DX: R00.2 Palpitations (principal); R42 Dizziness and giddiness; R00.1 Bradycardia, unspecified
CPT/HCPCS: 93225; 93226

== ENCOUNTER → 2024-09-06 | Outpatient (CLI) | payer OTHER, SELFPAY ==
--- NOTE | 2024-09-06 10:40 | ECHOD_ITS ---
Reason For Study: BICUSPID AORTIC VALVE Procedure This was a 2D Doppler, Color Flow transthoracic echocardiogram. Myocardial strain analysis was performed in this exam to aid in the assessment of cardiac function. Exam performed in department. Left Ventricle Normal LV size. The global longitudinal strain = -17.5 % (normal). The left ventricular ejection fraction is 55 %. No regional wall motion abnormalities noted. Right Ventricle Normal RV size. Normal systolic function. Atria Normal left atrium. Normal right atrium. Mitral Valve Normal mitral valve. Tricuspid Valve Normal tricuspid valve. Mild tricuspid valve insufficiency. Aortic Valve Bicuspid aortic valve. Peak aortic valve gradient 15 mmHg. Mean aortic valve gradient 8 mmHg. Mild (1+) aortic valve insufficiency. Pulmonic Valve Normal pulmonic valve. Mild (1+) pulmonic valve insufficiency. Great Vessels Normal aortic root. The pulmonary artery is normal size. Inferior vena cava collapse with respiration. Pericardium/Pleural No pericardial effusion. MMode/2D Measurements & Calculations LVIDd: 5.1 cm IVSd: 1.2 cm LVOT diam: 2.3 cm LVIDs: 3.3 cm LVPWd: 0.99 cm LVOT area: 4.3 cm2 RVDd: 4.2 cm FS: 36.2 % asc Aorta Diam: 3.6 cm LAV(MOD-bp): 22.9 ml LVAd ap4: 31.2 cm2 LAV(MOD-bp) Indexed: 10.1 ml/m2 LVLd ap4: 8.5 cm LAV(MOD-sp2): 29.4 ml EDV(MOD-sp4): 93.6 ml LAV(MOD-sp4): 18.6 ml EDV(sp4-el): 96.8 ml LVAs ap4: 19.5 cm2 LVLs ap4: 7.5 cm ESV(MOD-sp4): 41.6 ml ESV(sp4-el): 42.8 ml EF(MOD-sp4): 55.5 % EF(sp4-el): 55.8 % LVAd ap2: 31.4 cm2 SV(MOD-sp4): 52.0 ml SV(MOD-sp2): 57.7 ml LVLd ap2: 9.0 cm SI(MOD-sp4): 23.0 ml/m2 SI(MOD-sp2): 25.5 ml/m2 EDV(MOD-sp2): 89.8 ml EDV(sp2-el): 93.1 ml LVAs ap2: 17.4 cm2 LVLs ap2: 7.6 cm ESV(MOD-sp2): 32.1 ml ESV(sp2-el): 33.6 ml EF(MOD-sp2): 64.3 % SV(sp4-el): 54.0 ml Ao sinus diam: 3.[address] Junction: 3.2 cm LA dimension(2D): 3.4 cm LA A4 area: 9.9 cm2 RA A4 area: 12.0 cm2 TAPSE: 1.8 cm Time Measurements MV dec time: 0.16 sec Doppler Measurements & Calculations MV E max napoleon: 61.0 cm/sec Lat Peak E' [place]: 15.1 cm/sec Med Peak E' [place]: 12.8 cm/sec MV A max [place]: 52.8 cm/sec E/E' lat: 4.0 E/E' med: 4.8 MV E/A: 1.2 MV dec slope: 385.8 cm/sec2 Ao V2 max: 194.4 cm/sec LV V1 max: 78.6 cm/sec Ao max P.2 mmHg LV V1 max P.5 mmHg Ao V2 mean: 139.5 cm/sec LV V1 mean P.5 mmHg Ao mean P.5 mmHg LV V1 mean: 60.0 cm/sec Ao V2 VTI: 39.4 cm LV V1 VTI: 17.1 cm AV (velocity ratio): 0.44 LIYAH(I,D): 1.9 cm2 LIYAH(V,D): 1.7 cm2 SV(LVOT): 73.1 ml PA V2 max: 78.0 cm/sec TR max napole[place]: 220.6 cm/sec TR max P.5 mmHg ECHO/Echo Complete Interpretation Summary Normal LV size. The global longitudinal strain = -17.5 % (normal). The left ventricular ejection fraction is 55 %. Mild tricuspid valve insufficiency. Bicuspid aortic valve. Mean aortic valve gradient 8 mmHg. Mild (1+) aortic valve insufficiency. Compared to the previous the gradients are identical. Ordering Physician: Roger Lowe Referring Physician: Flo Horn MD Performed By: Melissa Liu RDCS
== END | disposition home or self-care (01) ==
LOC: CVS 10:37
PROVIDERS: PCP Family Medicine; Referring Provider Nurse Practitioner Family; Visit Provider Nurse Practitioner Family
DX: Q23.0 Congenital stenosis of aortic valve (principal); Q23.1 Congenital insufficiency of aortic valve
CPT/HCPCS: 93306

== ENCOUNTER → 2024-09-07 | Outpatient (CLI) | payer OTHER, SELFPAY ==
[2024-09-07 09:51] LABS: AST(SGOT) 25 U/L (15-37); Alanine Aminotransfer ALT/SGPT 44 U/L (16-61); Alkaline Phosphatase 53 U/L (45-117); Bilirubin, Direct 0.12 mg/dL (0.00-0.30); Cholesterol 138 mg/dL (200); Globulin 3.5 g/dL (2.2-4.2); High Density Lipoprotein 62 mg/dL; Protein, Total 7.5 g/dL (6.4-8.2); Triglycerides 95 mg/dL; Very Low Density Lipoprotein 19 mg/dL (5-40)
== END | disposition home or self-care (01) ==
LOC: LAB 09:04
PROVIDERS: PCP Family Medicine; Referring Provider Nurse Practitioner Family; Visit Provider Nurse Practitioner Family
DX: E78.00 Pure hypercholesterolemia, unspecified (principal)
CPT/HCPCS: 36415; 80061; 80076